=== PATIENT | female | born 1990 | race Caucasian/White ===

== ENCOUNTER 2019-02-04 21:20 | Emergency (ER) | payer BC, OTHER ==
[2019-02-04] MEDS ORDERED: Clindamycin Phosphate 600 MG in Sodium Chloride 0.9% 100 ML IV ONE ×3 (22:56→23:21)
[2019-02-04] MEDS ORDERED: Ondansetron 4 MG/2 ML SDV IVPUSH ONE (22:57)
--- NOTE | 2019-02-04 22:58 | EDM.PDOC ---
ED HPI GENERAL MEDICAL PROBLEM - General Chief Complaint: Fever Stated Complaint: INFECTED POINTER FINGER ON RIGHT HAND Time Seen by Provider: 02/04/19 22:57 Source of Information: Reports: Patient History Limitations: Reports: No Limitations - History of Present Illness INITIAL COMMENTS - FREE TEXT/NARRATIVE: 28-year-old female presents to the ED due to increasing pain and swelling in her right index finger. Patient states she developed a paronychial infection along the fingernail about 2 weeks ago. She admits that she did poke herself with a needle and things did get worse after this. She was on a short course of cephalexin I believe for 5 days worth and there was no improvement in the swelling or infection in fact was getting worse. Subsequently she was started on Bactrim double strength yesterday and has taken 3 tablets. Tonight she feels more chilled and that she was running a fever. And the pain in her finger is worsening. There is been no drainage. Material from the finger. She also felt nauseated and discomfort in her epigastrium which I believe is likely due to the Bactrim. No vomiting. No diarrhea Onset: Gradual Onset Date: 01/25/19 Duration: Day(s):, Getting Worse Location: Reports: Upper Extremity, Right Quality: Reports: Ache (Right index finger paronychia of infection), Pressure, Throbbing Severity: Moderate (7 out of 10) Improves with: Reports: None Worsens with: Reports: Other (Light touch causes severe pain) Context: Denies: Activity, Exercise, Lifting, Sick Contact, Trauma, Other Associated Symptoms: Reports: Fever/Chills ( and pressure in the pit of her stomach. 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 (Not helping at all) Right Finger-Index Pain Score (Numeric/FACES): 2 - Related Data Allergies Allergy/AdvReac Type Severity Reaction Status Date / Time aloe Allergy Hives Verified 02/04/19 21:52 bee venom protein (honey bee) Allergy Hives Verified 02/04/19 21:52 lanolin Allergy Rash Verified 02/04/19 21:52 latex Allergy Rash Verified 02/04/19 21:53 peanut Allergy Hives Verified 02/04/19 21:53 Penicillins Allergy Hives Verified 02/04/19 21:52 Home Meds: Home Meds Sulfamethoxazole/Trimethoprim [Bactrim Ds Tablet] 1 each PO BID 02/04/19 [ History] Doxycycline [Vibramycin] 100 mg PO BID #20 cap 02/05/19 [Rx] traMADol [Ultram] 50 mg PO Q6H PRN #20 tab 02/05/19 [Rx] Past Medical History - Past Surgical History GI Surgical History: Reports: Cholecystectomy Social & Family History - Tobacco Use Smoking Status *Q: Never Smoker - Recreational Drug Use Recreational Drug Use: No - Living Situation & Occupation Living situation: Reports: Occupation: Unemployed ED ROS GENERAL - Review of Systems Review Of Systems: See Below Constitutional: Reports: Fever, Chills, Malaise, Other HEENT: Reports: No Symptoms (Decreased sleep) Respiratory: Reports: No Symptoms Cardiovascular: Reports: No Symptoms Endocrine: Reports: No Symptoms GI/Abdominal: Reports: Abdominal Pain, Decreased Appetite : Reports: No Symptoms Musculoskeletal: Reports: Other (Severe pain distal aspect of the right index finger) Skin: Reports: Other (Infection i.e. paronychia infection right index finger. Pain radiates up the volar aspect of her forearm) Neurological: Reports: No Symptoms ( right index finger) Psychiatric: Reports: No Symptoms Hematologic/Lymphatic: Reports: No Symptoms ED EXAM, SEPSIS - Physical Exam Exam: See Below Exam Limited By: No Limitations General Appearance: Alert, WD/WN, Mild Distress Throat/Mouth: Normal Inspection, Normal Lips, Normal Oropharynx Respiratory/Chest: No Respiratory Distress, Lungs Clear, Normal Breath Sounds, No Accessory Muscle Use Cardiovascular: Normal Peripheral Pulses, Regular Rate, Rhythm, No Edema, No Gallop, No Murmur, No Rub GI/Abdominal Exam: Normal Bowel Sounds, Soft, Tender (Mild tenderness in the epigastrium with no peritoneal signs. No positive Beckwith sign. She reports her gallbladder is been removed) Extremities: Other (Inspection of her right index finger reveals paronychial infection that appears to be started from the base of the nail on the ulnar aspect.) Psychiatric: Normal Affect ( It is very painful to touch.), Normal Mood Skin: Warm, Dry, Intact, Other (Increased warmth swelling and erythema distal aspect of the right index finger just proximal to the nail) Course - Vital Signs Last Recorded V/S: Last Vital Signs Temp 37.3 C 02/04/19 21:48 Pulse 99 02/04/19 21:48 Resp 16 02/04/19 21:48 BP 106/72 02/04/19 21:48 Pulse Ox 98 02/04/19 21:48 - Orders/Labs/Meds Orders: Active Orders 24 hr Category Date Time Status Dextrose 5%-0.9% NaCl [Dextrose 5%-Normal Saline] 1,000 Med 02/04/19 23:00 Active ml IV ASDIRECTED Ketorolac [Toradol] Med 02/04/19 23:00 Active 30 mg IVPUSH ONETIME Medication Orders Dextrose/Sodium Chloride (Dextrose 5%-Normal Saline) 1,000 mls @ 500 mls/hr IV ASDIRECTED CELESTINE Last Admin: 02/04/19 23:25 Dose: 500 mls/hr Ketorolac Tromethamine (Toradol) 30 mg IVPUSH ONETIME CELESTINE Last Admin: 02/04/19 23:26 Dose: 30 mg Labs: Laboratory Tests 02/04/19 02/04/19 Range/Units 23:05 23:05 WBC 6.66 (3.98-10.04) K/mm3 RBC 4.68 (3.98-5.22) M/mm3 Hgb 13.1 (11.2-15.7) gm/L Hct 39.6 (34.1-44.9) % MCV 84.6 (79.4-94.8) fl MCH 28.0 (25.6-32.2) pg MCHC 33.1 (32.2-35.5) g/dl RDW Std Deviation 44.3 (36.4-46.3) fL Plt Count 266 (182-369) K/mm3 MPV 10.6 (9.4-12.3) fl Neutrophils % (Manual) 42 (40-60) % Band Neutrophils % 0 (0-10) % Lymphocytes % (Manual) 42 H (20-40) % Atypical Lymphs % 0 % Monocytes % (Manual) 11 H (2-10) % Eosinophils % (Manual) 4 (0.7-5.8) % Basophils % (Manual) 1 (0.1-1.2) Platelet Estimate Adequate Plt Morphology Comment Normal RBC Morph Comment Normal Sodium 139 (136-145) mEq/L Potassium 3.9 (3.5-5.1) mEq/L Chloride 103 (98-107) mEq/L Carbon Dioxide 25 (21-32) mEq/L Anion Gap 14.9 (5-15) BUN 10 (7-18) mg/dL Creatinine 0.9 (0.55-1.02) mg/dL Est Cr Clr Drug Dosing 104.21 mL/min Estimated GFR (MDRD) > 60 (>60) mL/min BUN/Creatinine Ratio 11.1 L (14-18) Glucose 88 (74-106) mg/dL Calcium 9.5 (8.5-10.1) mg/dL Total Bilirubin 0.2 (0.2-1.0) mg/dL AST 15 (15-37) U/L ALT 24 (14-59) U/L Alkaline Phosphatase 77 (46-116) U/L C-Reactive Protein < 0.2 (<1.0) mg/dL Total Protein 8.3 H (6.4-8.2) g/dl Albumin 4.3 (3.4-5.0) g/dl Globulin 4.0 gm/dL Albumin/Globulin Ratio 1.1 (1-2) Meds: Medications Generic Name Dose Route Start Last Admin Trade Name Hailey PRN Reason Stop Dose Admin Dextrose/Sodium Chloride 1,000 mls @ 500 mls/hr 02/04/19 23:00 02/04/19 23:25 Dextrose 5%-Normal Saline IV 500 mls/hr ASDIRECTED CELESTINE Administration Ketorolac Tromethamine 30 mg 02/04/19 23:00 02/04/19 23:26 Toradol IVPUSH 30 mg ONETIME CELESTINE Administration Discontinued Medications Generic Name Dose Route Start Last Admin Trade Name Hailey PRN Reason Stop Dose Admin Clindamycin Phosphate Confirm 02/04/19 23:11 02/04/19 23:46 Cleocin Administered 02/04/19 23:12 Not Given Dose 900 mg .ROUTE .STK-MED ONE Clindamycin Phosphate 600 mg/ 104 mls @ 200 mls/hr 02/04/19 22:56 Sodium Chloride IV 02/04/19 23:27 ONETIME ONE Sodium Chloride Confirm 02/04/19 23:17 02/04/19 23:46 Normal Saline Administered 02/04/19 23:18 Not Given Dose 100 mls @ as directed .ROUTE .STK-MED ONE Clindamycin Phosphate 600 mg/ 104 mls @ 200 mls/hr 02/04/19 23:21 02/04/19 23 :27 Sodium Chloride IV 02/04/19 23:27 200 mls/hr ONETIME ONE Administration Lidocaine HCl Confirm 02/05/19 00:42 02/05/19 01:02 Xylocaine 1% Administered 02/05/19 00:43 Not Given Dose 10 ml .ROUTE .STK-MED ONE Lidocaine HCl 10 ml 02/05/19 00:45 02/05/19 00:45 Xylocaine 1% INJECT 02/05/19 00:46 10 ml ONETIME ONE Administration Ondansetron HCl 4 mg 02/04/19 22:57 02/04/19 23:27 Zofran IVPUSH 02/04/19 22:58 4 mg ONETIME ONE Administration Tramadol HCl 100 mg 02/05/19 01:23 02/05/19 01:46 Ultram PO 02/05/19 01:24 100 mg ONETIME ONE Administration - Radiology Interpretation Free Text/Narrative:: 28-year-old female presents to the ED with worsening paronychia infection of her right index finger. She was on a course of cephalexin for 4-5 days without any improvement. She started Bactrim double strength yesterday and has taken 3 tablets. Currently can't stand the pain is starting to feel more systemically ill with fever chills and nausea none specific discomfort in the epigastrium. She has no diarrhea. She admits sleep has been disrupted due to the severity of the pain and Tylenol is not helping. On examination she does have a significant paronychia infection and there is due to worsening erythema of the volar aspect of the finger to the MCP joint. There is no lymphangitis up the arm or forearm. Plan IV clindamycin 600 mg. Routine labs to be collected. Will give Toradol 30 mg IV for pain relief. - Re-Assessments/Exams Free Text/Narrative Re-Assessment/Exam: 02/05/19 00:23 Labs reveal a normal white count at 6.66 with 42% neutrophils and 42% lymphocytes suggesting a low-grade viral infection. Hemoglobin is 13.1 with hematocrit of 39.6. Platelet count is 266,000. Sodium 139 with potassium of 3.9. Chloride 103 with a bicarbonate 25. Anion gap is 14.9 with a BUN of 10. Creatinine is 0.9. GFR remains greater than 60. Glucose is 88. Calcium is 9.5. Liver function is normal. C-reactive protein is less than 0.2. Total protein is 8.3 with an albumin fraction of 4.3. Discussed the findings with the patient. Decision made to inject the paronychia infection with small amount of lidocaine and opened up with an 18-gauge needle to drain the pus. This was carried out. Patient will be discharged home on doxycycline 100 mg twice daily for the next 10 days. Bactrim double strength is to be discontinued as I think she is experiencing adverse effects of the GI tract from the medication. She has had good luck with tramadol the past for pain relief and therefore prescription written for tramadol 50 mg tablets one every 6 hours needed for pain relief 20 tabs. She is to be followed up if not markedly improved in 48-72 hours time Departure - Departure Time of Disposition: :23 Disposition: Home, Self-Care 01 Condition: Fair Clinical Impression: Paronychia of finger of right hand - Discharge Information *PRESCRIPTION DRUG MONITORING PROGRAM REVIEWED*: Not Applicable *COPY OF PRESCRIPTION DRUG MONITORING REPORT IN PATIENT GILBERTO: Not Applicable Prescriptions: Doxycycline [Vibramycin] 100 mg PO BID #20 cap traMADol [Ultram] 50 mg PO Q6H PRN #20 tab PRN Reason: Pain relief Referrals: Lala Lisa PA-C [Primary Care Provider] - Forms: ED Department Discharge Additional Instructions: Evaluation the emergency room today in regards to gradually worsening pain and swelling of the right index finger due to peroneal kill infection along the nailbed of the index finger. Initial antibiotic cephalexin did not seem to improve infection. Subsequently you've been started on Bactrim double strength twice daily which will work eventually but currently is not resolving the problem and I believe is making her stomach upset. Lab work did not show any signs of systemic signs of infection i.e. bloodstream infection from your finger. You're treated with intravenous fluids and intravenous antibiotic clindamycin 600 mg. Treatment is to be changed at home to doxycycline 100 mg twice daily for the next 10 days to clear up the infection completely. Stop the current antibiotic Bactrim double strength. May use tramadol 50 mg every 6 hours necessary for pain relief. Expect marked improvement over the next 48 hours. If not you should be seen again - My Orders Last 24 Hours: My Active Orders 02/04/19 23:00 Dextrose 5%-0.9% NaCl [Dextrose 5%-Normal Saline] 1,000 ml IV ASDIRECTED Ketorolac [Toradol] 30 mg IVPUSH ONETIME - Assessment/Plan Last 24 Hours: My Active Orders 02/04/19 23:00 Dextrose 5%-0.9% NaCl [Dextrose 5%-Normal Saline] 1,000 ml IV ASDIRECTED Ketorolac [Toradol] 30 mg IVPUSH ONETIME
[2019-02-04] MEDS ORDERED: Ketorolac 30 MG/ML SDV IVPUSH SCH (23:00)
[2019-02-04] MEDS ORDERED: Dextrose 5%-0.9% NaCl 1,000 ML IV SCH (23:00)
[2019-02-04] MEDS ORDERED: Clindamycin Phosphate 900 MG/6 ML SDV ONE (23:11)
[2019-02-04] MEDS ORDERED: Sodium Chloride 0.9% 100 ML ONE (23:17)
[2019-02-05] MEDS ORDERED: Lidocaine 1% 10 ML MDV ONE (00:42)
[2019-02-05] MEDS ORDERED: Lidocaine 1% 10 ML MDV INJECT ONE (00:45)
[2019-02-05] MEDS ORDERED: traMADol 50 MG Tab PO ONE (01:23)
== END 2019-02-05 01:50 | disposition home or self-care (01) ==
LOC: JD.ED 21:20
DX: L03.011 Cellulitis of right finger (principal); Z79.899 Other long term (current) drug therapy; Z91.09 Other allergy status, other than to drugs and biological substances; Z91.030 Bee allergy status; Z91.040 Latex allergy status; Z88.0 Allergy status to penicillin; Z91.010 Allergy to peanuts
CPT/HCPCS: 10060; 36415; 80053; 85007; 85027; 86140; 96361; 96365; 96375; 99283; A9270; J1885; J2001; J2405; J3490; J7030; J7042; 99284